=== PATIENT | male | born 1955 | race Caucasian/White ===

== ENCOUNTER 2017-01-09 07:57 | Inpatient (IN) | payer OTHER ==
[2017-01-09] VITALS (7 sets, daily range): BP systolic 104–143; BP diastolic 69–86
[~2017-01-09] VITALS: Ht 178 cm; Wt 82.0 kg
[~2017-01-09 07:57] MED LIST: APAP/OXYCODONE1 TA2 PO; ATORVASTATIN CA80 M1 PO; LISINOPRIL AND1 TAB PO; LOW DOSE ASPIRI81 MG PO; METOPROLOL TART50 M1 PO
[2017-01-09 08:43] LABS: BASO % 0.4 % (0.0-1.0); EOS # 0.1 10*3/uL (0.0-0.4); EOS % 0.8 % (1.0-4.0); HEMATOCRIT 44.4 % (42.0-52.0); HEMOGLOBIN 14.9 g/dl (14.0-18.0); LYMPH # 2.1 10*3/uL (1.3-4.4); LYMPH % 19.3 % (27.0-41.0); MEAN CELL VOLUME 92.1 fl (80.0-94.0); MEAN CORPUSCULAR HGB 30.9 pg (27.0-31.0); MEAN CORPUSCULAR HGB CONC 33.6 g/dl (33.0-37.0); MEAN PLATELET VOLUME 9.6 fl (9.6-12.3); MONO # 0.7 10*3/uL (0.1-1.0); MONO % 6.9 % (3.0-9.0); NEUT # 7.7 10*3/uL (2.3-7.9); NEUT % 72.3 % (47.0-73.0); PLATELET COUNT AUTOMATED 269 10*3/uL (130-400); RED BLOOD COUNT 4.82 10*6/uL (4.50-5.90); RED CELL DISTRI WIDTH 14.3 % (0-14.5); WHITE BLOOD COUNT 10.7 10*3/uL (4.8-10.8)
[2017-01-09 09:03] LABS: ALBUMIN 3.6 gm/dl (3.1-4.5); ALKALINE PHOSPHATASE 108 U/L (45-117); BUN 16 mg/dl (7-24); CHLORIDE 106 mmol/L (98-107); CREATININE 0.89 mg/dL (0.70-1.30); POTASSIUM 3.9 mmol/L (3.5-5.1); SGOT/AST 15 IU/L (3-35); SGPT/ALT 24 U/L (12-78); SODIUM 140 mmol/L (136-145); TOTAL PROTEIN 7.7 gm/dL (6.4-8.2)
[2017-01-09 09:08] LABS: ETHYL ALCOHOL < 3.0 mg/dl (<3)
[2017-01-09 09:11] LABS: THYROID STIM HORMONE (HS) 0.738 uIU/ml (0.358-4.75)
[2017-01-09 11:52] LABS: BILIRUBIN NEGATIVE (NEGATIVE); BLOOD NEGATIVE (NEGATIVE); CLARITY CLEAR (CLEAR); COLOR YELLOW (YELLOW); GLUCOSE NEGATIVE (NEGATIVE); KETONE NEGATIVE (NEGATIVE); LEUKO ESTERASE NEGATIVE (NEGATIVE); NITRITE NEGATIVE (NEGATIVE); SPECIFIC GRAVITY 1.015 (1.005-1.030)
[2017-01-09 11:58] LABS: RBC 0-2 rbc/hpf (0-2); WBC 0-2 wbc/hpf (0-5)
[2017-01-09 12:01] LABS: URINE AMPHETAMINES < 1000 (1000ng/ml); URINE BARBITURATES < 200 (200ng/ml); URINE BENZODIAZEPINES < 200 (200ng/ml); URINE CANNABINOIDS (THC) < 50 (50ng/ml); URINE COCAINE < 300 (300ng/ml); URINE METHADONE < 300 (300ng/ml); URINE OPIATES > 300 (300ng/ml); URINE PHENCYCLIDINE < 25 (25ng/ml)
[2017-01-10] VITALS: BP 114/68
[2017-01-10 04:00] VITALS: BP 91/61
[2017-01-10 08:00] VITALS: BP 110/74
[2017-01-10 12:00] VITALS: BP 112/82
[2017-01-10 16:00] VITALS: BP 95/61
[2017-01-10 20:00] VITALS: BP 109/56
[2017-01-11] VITALS: BP 111/65
[2017-01-11 08:00] VITALS: BP 108/74
[2017-01-11 12:00] VITALS: BP 124/87
[2017-01-11 16:00] VITALS: BP 108/64
[2017-01-11 20:00] VITALS: BP 130/66
[2017-01-12] VITALS: BP 122/62
[2017-01-12 06:20] LABS: BASO # 0.1 10*3/uL (0.0-0.1); BASO % 0.6 % (0.0-1.0); EOS # 0.3 10*3/uL (0.0-0.4); EOS % 3.3 % (1.0-4.0); HEMOGLOBIN 13.5 g/dl (14.0-18.0); LYMPH # 2.7 10*3/uL (1.3-4.4); LYMPH % 28.4 % (27.0-41.0); MEAN CELL VOLUME 94.9 fl (80.0-94.0); MEAN CORPUSCULAR HGB 31.3 pg (27.0-31.0); MEAN CORPUSCULAR HGB CONC 32.9 g/dl (33.0-37.0); MEAN PLATELET VOLUME 10.2 fl (9.6-12.3); MONO # 1.2 10*3/uL (0.1-1.0); MONO % 12.1 % (3.0-9.0); NEUT # 5.3 10*3/uL (2.3-7.9); NEUT % 55.3 % (47.0-73.0); PLATELET COUNT AUTOMATED 236 10*3/uL (130-400); RED BLOOD COUNT 4.32 10*6/uL (4.50-5.90); RED CELL DISTRI WIDTH 14.1 % (0-14.5); WHITE BLOOD COUNT 9.6 10*3/uL (4.8-10.8)
[2017-01-12 06:37] LABS: CREATININE 0.97 mg/dL (0.70-1.30)
[2017-01-12 08:00] VITALS: BP 128/58
[2017-01-12] MEDS ORDERED: ATARAX,VISTARIL50 MG PO (09:39)
[2017-01-12] MEDS ORDERED: ZOFRAN4 MG PO (09:39)
== END 2017-01-12 11:05 | disposition home or self-care (01) | DRG 897 ==
LOC: ED 07:57 → EDHOLD 08:35 → 5E 08:35
PROVIDERS: Emergency Medicine; Internal Medicine; ADMIT Internal Medicine
DX: F11.23 Opioid dependence with withdrawal (principal); E44.1 Mild protein-calorie malnutrition; I10 Essential (primary) hypertension; M79.1 Myalgia; I25.10 Atherosclerotic heart disease of native coronary artery without angina pectoris; Z72.0 Tobacco use; Z71.6 Tobacco abuse counseling; Z68.25 Body mass index [BMI] 25.0-25.9, adult; Z79.899 Other long term (current) drug therapy; Z95.818 Presence of other cardiac implants and grafts; I25.2 Old myocardial infarction; Z84.89 Family history of other specified conditions; Z79.82 Long term (current) use of aspirin

== ENCOUNTER 2017-02-25 15:50 | Inpatient (IN) | payer OTHER ==
[~2017-02-25] VITALS: Ht 170.1 cm; Wt 80.7 kg
--- NOTE | ~2017-02-25 | DS ---
[place], [place] DISCHARGE SUMMARY NAME: DARA CASTILLO JR UNIT #: [id number] ROOM: 311 DOCTOR: SERGO BOND MD BIRTHDATE: [birth year] DOS: 03/04/2017 CHIEF COMPLAINT: "I just want to end it all. I can't stand the pain." HISTORY OF PRESENT ILLNESS: This is a 61-year-old white male who was sent to the emergency room by his psychiatrist, Dr. Alvarez, due to increased depression with suicidal and homicidal ideation. The patient reports that he has been dealing with depression and chronic pain forever and feels that the only way out is to take his life. He has not been sleeping well. He has not been eating well. He has been thinking of nothing but ending it all. He is admitted now to rule out organic factors and to stabilize on medication. PAST MEDICAL HISTORY: Remarkable for chronic pain and a lengthy history of depression as well as coronary artery disease, hypertension, myalgia and syncope. SUMMARY OF HOSPITAL COURSE: The patient was admitted to the unit where he was continued on trazodone 50 mg at bedtime. His Klonopin was discontinued in lieu of a nonaddicting alternative Vistaril 25 mg twice daily. He was also started on Cymbalta 30 mg in the morning to help with depression, anxiety and the pain. He tolerated these new medicines well and the trazodone was eventually increased to 100 mg at bedtime to aid sleep and augment the effectiveness of the Cymbalta, which likewise was increased from 30 to 60 mg in the morning with excellent results. The patient found that both medications impacted positively on his mood helping him feel happier and less depressed. They also impacted on his pain and he felt great relief throughout the day. He voiced positive plans for the future and felt that he could return home and have outpatient followup with his psychiatrist. MENTAL STATUS AT DISCHARGE: The patient is alert and oriented to person, place, and time. Mood is strongly trending towards euthymia and affect is much more appropriate. There are no symptoms of ovi or hypomania. There are no auditory or visual hallucinations. No delusions, no paranoia. Short, intermediate, and long-term memory are intact. FINAL DIAGNOSES: Major depression, recurrent, severe, and dysthymic disorder. PLAN: All of his prescriptions have been E-scribed except for his Cymbalta, which was written and signed. He will have followup with his outpatient provider, which is Dr. Alvarez. [place], [place] DISCHARGE SUMMARY NAME: DARA CASTILLO JR UNIT #: [id number] ROOM: [facility] DOCTOR: SERGO BOND MD BIRTHDATE: [birth year] SERGO BOND MD CM:DISCHARG [id number] SERGO BOND MD 03/04/17 1036 interface
--- NOTE | ~2017-02-25 | PR ---
[place], [place] PROGRESS NOTE NAME: [facility]ILL[facility] JR [id number] UNIT #: [id number] ROOM: 317 DOCTOR: Daniel GUEVARA,NAIMA BIRTHDATE: [birth year] DOS: 02/27/2017 PSYCHIATRIC PROGRESS NOTE SUBJECTIVE: Patient seen and spoke with the staff. Per staff, patient is doing better, sleeping well. No behavior problems or issues and compliant with his medication. Patient was pleasant and cooperative. He reports feeling better, still feels sad and down at times, complains about pain and asking that if he can get the patch. He reports good sleep and appetite. Did not express any other concern. MENTAL STATUS EXAMINATION: Patient was pleasant, cooperative. Described his mood as "okay." Affect, mood congruent. Thought process goal directed. No flight of ideas, loosening of association. He denied auditory or visual hallucination. No delusion or paranoia noted. He denied suicidal ideation, intent or plan. He also denied any homicidal ideation, intent or plan. Insight and judgment fair. ASSESSMENT: Major depressive disorder, recurrent without psychotic features, still depressed. PLAN: 1. Continue current medication and care. May need to give some time to get the optimal effect of the medication. 2. Continue redirection. 3. Palmer milieu. NAIMA GUEVARA MD CM:PNGALE [phone] Daniel GUEVARA 02/27/17 2341 interface
--- NOTE | ~2017-02-25 | EKG ---
[place], [place] ELECTROCARDIOGRAM REPORT NAME: DARA CASTILLO JR UNIT #: [id number] ROOM: 317 DOCTOR: KARIS SRIVASTAVA MD BIRTHDATE: [birth year] DOS: 02/25/2017 TIME: 1639 hours. Normal sinus rhythm at 94 beats per minute. Low voltage T waves in lateral chest leads. An abnormal ECG. No previous tracing is available for comparison. KARIS SRIVASTAVA MD CM:EKGRPT:ELECTROCARDIOGRAM REPORT [id number] KARIS SRIVASTAVA MD
--- NOTE | ~2017-02-25 | PR ---
[place], [place] PROGRESS NOTE [id number] #: [id number] ROOM: 317 DOCTOR: Daniel GUEVARA,NAIMA BIRTHDATE: [birth year] DOS: 02/28/2017 PSYCHIATRIC PROGRESS NOTE SUBJECTIVE: Patient seen and spoke with the staff. Per staff, patient is doing well. No behavioral problems or issues. Slept well, but he was seen talking to himself and responding to stimuli. Patient was pleasant and cooperative. He was in the day area. He reports doing well. When I asked him about auditory hallucination, he totally denied that. He said that the current medication is helping him and he is doing much better. There is no anxiety or panic attack. He said that he still has some pain issues and would like to talk with the primary care physician about that. MENTAL STATUS EXAMINATION: Patient was pleasant, cooperative. Described his mood as "okay." Affect, mood congruent. Thought process goal directed. No flight of ideas or loosening of association. He denied auditory or visual hallucination, but per nursing report, he seems to be responding to stimuli. No delusion or paranoia noted. He denied suicidal ideation, intent or plan. He also denied homicidal ideation, intent or plan. Insight and judgment fair. ASSESSMENT: 1. Major depressive disorder, recurrent, without psychotic features. 2. Opiate dependence. PLAN: 1. Continue current medication and care. 2. Continue redirection. 3. Palmer milieu. NAIMA GUEVARA MD CM:MAX [id number] Daniel GUEVARA 03/01/17 0301 interface
--- NOTE | ~2017-02-25 | WRIGHTHP ---
[place], [place] PATIENT HISTORY AND PHYSICAL EXAM [id number] UNIT #: [id number] ROOM: 317 DOCTOR: Daniel GUEVARA,ABISAICHIP BIRTHDATE: [birth year] DOS: 02/26/2017 REASON FOR HOSPITALIZATION: Increased depression, suicidal and homicidal ideation. HISTORY OF PRESENT ILLNESS: The patient seen and chart reviewed. A 61-year-old male who came to the ER referred actually by his psychiatrist, Dr. Alvarez, for increased depression and suicidal and homicidal ideation. The patient got cleared medically into the ER and then got admitted to the psychiatric unit for further care and stabilization. The patient was pleasant and cooperative during the interview. He reports being depressed, down, sad, helpless with lack of energy and motivation for the past several weeks. He mentioned that his pain physician, who has been prescribing him Percocet, suddenly stopped the Percocet and do not want to prescribe him anymore. He mentioned that he has been dealing with pain for the past 17 years, but now his pain physician, Dr. Villa, who wants to count how many medication he has been given and also wants to take him for even drug screen. The patient mentioned that made him mad and he cannot deal with the pain also. The patient mentioned that he was injured during work and he has been taking Percocet for the last 17 years. Besides the pain and also not able to get the Percocet, he was not able to identify any other specific stress for his depression. He mentioned that he was trying to get the medication from the street and also from some friends, but he cannot afford that because those medications on the street were expensive. He denied any symptoms of psychosis, ovi, or hypomania. PAST MEDICAL HISTORY: Significant for coronary artery disease, hypertension, myalgia, and syncope. PAST PSYCHIATRIC HISTORY: The patient denied any prior psychiatric hospitalization, 1 prior suicide attempt when he tried to cut his wrist. His dad committed suicide. He denied having any gun at home. SUBSTANCE ABUSE HISTORY: The patient had a long history of alcohol abuse. He said that he has been sober since 2009. Denied any other substances. SOCIAL HISTORY: He is born and raised in [place], 10th grade education. He was once, but . He does not have any kids, on SSDI, lives by himself. He has a brother and sister around, but he does not have a good relationship with them. He denied any history of physical or sexual abuse. MENTAL STATUS EXAMINATION: The patient was pleasant, cooperative, described his mood as "okay." Affect, mood congruent. Thought process goal directed. No flight of ideas, loosening of association. He denied auditory or visual hallucination. No delusion or paranoia noted. He still had fleeting suicidal ideation, but no intent or plan. Denied any homicidal ideation, intent or plan. Insight and judgment fair. ASSESSMENT: [place], [place] PATIENT HISTORY AND PHYSICAL EXAM NAME: DARA CASTILLO JR UNIT #: [id number] ROOM: [facility] DOCTOR: Daniel GUEVARA,NAIMA BIRTHDATE: [birth year] 1. Major depressive disorder, recurrent without psychotic features, still depressed with fleeting suicidal ideation. 2. Opiate addiction. PLAN: 1. I will start him on Cymbalta 30 mg in the morning with a plan to titrate that up. 2. I will continue with trazodone 50 mg at night for insomnia. 3. Vistaril 25 mg twice a day for anxiety. I will discontinue the Klonopin. 4. We will involve the medical team to treat his pain issues. 6. One to one therapy psychoeducation and coping skills. 7. Collateral information. 8. Palmer milieu. NAIMA GUEVARA MD CM:HISPHYS:PATIENT HISTORY AND PHYSICAL EXAMINATION [phone] Daniel GUEVARA 02/27/17 1453 interface
--- NOTE | ~2017-02-25 | PR ---
[place], [place] PROGRESS NOTE NAME: [facility]AA [id number] UNIT #: [id number] ROOM: 317 DOCTOR: Daniel GUEVARA,NAIMA BIRTHDATE: [birth year] DOS: 03/01/2017 SUBJECTIVE: The patient seen and spoke with the staff. Per staff, the patient is doing well. He is much more animated and more interactive. He is sleeping well. No behavior problems or issues. Easily redirectable. The patient was pleasant and cooperative. He reports doing well. He reports good sleep and appetite: Denied any problem with his medication. He did not talk about his pain also as much, but he mentioned that he would like to use the patch instead of taking pain medication by mouth. MENTAL STATUS EXAMINATION: The patient was pleasant and cooperative, described his mood as "okay." Affect, mood congruent. Thought process goal directed. No flight of ideas or loosening of association. He denied auditory or visual hallucination. No delusion or paranoia noted. He denied any suicidal ideation, intent or plan. He also denied any homicidal ideation, intent or plan. Insight and judgment fair. ASSESSMENT: 1. Major depressive disorder, recurrent without psychotic feature. 2. Polysubstance abuse. PLAN: 1. Continue current medication and care. 2. Continue redirection. 3. Palmer milieu. 4. Final medication management and discharge plan by the regular team. NAIMA GUEVARA MD CM:MAX [phone] Daniel GUEVARA 03/01/17 1003 interface
[~2017-02-25 15:50] MED LIST changes: +ATARAX,VISTARIL50 MG PO; +ZOFRAN4 MG PO
--- NOTE | 2017-02-25 16:10 | NUR ---
ALL BELONGINGS IN BAGS AND PLACED IN MED ROOM. PT CALM, COOPERATIVE. OFFERED PT DINNER TRAY, PT AGREEABLE.
[2017-02-25 16:17] VITALS: BP 129/94
[2017-02-25 16:50] LABS: BASO # 0.1 10*3/uL (0.0-0.1); BASO % 0.6 % (0.0-1.0); EOS # 0.1 10*3/uL (0.0-0.4); HEMOGLOBIN 15.2 g/dl (14.0-18.0); LYMPH # 2.9 10*3/uL (1.3-4.4); LYMPH % 26.5 % (27.0-41.0); MEAN CELL VOLUME 92.2 fl (80.0-94.0); MEAN CORPUSCULAR HGB 31.1 pg (27.0-31.0); MEAN CORPUSCULAR HGB CONC 33.8 g/dl (33.0-37.0); MEAN PLATELET VOLUME 9.6 fl (9.6-12.3); MONO # 0.8 10*3/uL (0.1-1.0); MONO % 7.3 % (3.0-9.0); NEUT % 64.3 % (47.0-73.0); PLATELET COUNT AUTOMATED 274 10*3/uL (130-400); RED BLOOD COUNT 4.88 10*6/uL (4.50-5.90); RED CELL DISTRI WIDTH 14.3 % (0-14.5); WHITE BLOOD COUNT 10.9 10*3/uL (4.8-10.8)
[2017-02-25 16:55] LABS: BILIRUBIN NEGATIVE (NEGATIVE); BLOOD NEGATIVE (NEGATIVE); CLARITY CLEAR (CLEAR); COLOR YELLOW (YELLOW); GLUCOSE NEGATIVE (NEGATIVE); KETONE NEGATIVE (NEGATIVE); LEUKO ESTERASE NEGATIVE (NEGATIVE); NITRITE NEGATIVE (NEGATIVE); PH 5.5 (5.0-9.0); SPECIFIC GRAVITY 1.025 (1.005-1.030); UROBILINOGEN 0.2 E.U./dl (0.2-1.0)
[2017-02-25 17:00] LABS: ACT PARTIAL THROMBO TIME 22.9 SECONDS (20.8-31.5)
[2017-02-25 17:03] LABS: BACTERIA TRACE; MUCOUS 1+; WBC 0-2 wbc/hpf (0-5)
[2017-02-25 17:04] LABS: EPITHELIAL CELLS 0-2; URINE AMPHETAMINES < 1000 (1000ng/ml); URINE BARBITURATES < 200 (200ng/ml); URINE BENZODIAZEPINES < 200 (200ng/ml); URINE CANNABINOIDS (THC) < 50 (50ng/ml); URINE COCAINE < 300 (300ng/ml); URINE METHADONE < 300 (300ng/ml); URINE OPIATES > 300 (300ng/ml); URINE PHENCYCLIDINE < 25 (25ng/ml)
[2017-02-25 17:05] LABS: ALKALINE PHOSPHATASE 115 U/L (45-117); BUN 9 mg/dl (7-24); CHLORIDE 105 mmol/L (98-107); LIPASE 198 U/L (73-393); POTASSIUM 3.7 mmol/L (3.5-5.1); SGOT/AST 16 IU/L (3-35); SGPT/ALT 26 U/L (12-78); SODIUM 140 mmol/L (136-145); TOTAL PROTEIN 7.8 gm/dL (6.4-8.2)
[2017-02-25 17:06] LABS: ACETAMINOPHEN (TYLENOL) < 2.0 ug/ml (10-30); ETHYL ALCOHOL < 3.0 mg/dl (<3); TROPONIN I < 0.015 ng/ml (<0.045)
--- NOTE | 2017-02-25 17:24 | NUR ---
PATIENT CURRENTLYCALM AND COOPERATIVEAT THIS TIME.
--- NOTE | 2017-02-25 18:37 | NUR ---
SPOKE WITH U FOR ADMISSION. PENDING AT THIS TIME/
--- NOTE | 2017-02-25 19:08 | NUR ---
PATIENT EATING AT THIS TIME WILL ASSESS AFTER HISAL
[2017-02-25 19:20] VITALS: BP 142/93
--- NOTE | 2017-02-25 19:30 | NUR ---
U ACCEPTED ADMISSIONS AWAITING ON ROOM AND NURSE
--- NOTE | 2017-02-25 20:27 | NUR ---
CALLED TO SEE WHEN [facility] WOULD BE DOWN FOR ADMISSION
--- NOTE | 2017-02-25 20:30 | NUR ---
CASTLILO DARA a 61 year old M admitted via wheel chair from the EMERGENCY ROOM as a voluntary admission. Arrived on unit at 2030PM. ALLERGIES: NONE. Vital signs are: 97.3-84-18 130/70. The client signed the following forms with stated understanding: Authorization For The Release of Medical Information, Clothing List, Consent to Voluntary Admission and Hospitalization, Consent and Release Forms/Receipt of Rights, Acknowledgement of Advance Directive Information, Behavioral Health Consent Form, and Informed Consent of Medications. Admitted under the services of Dr. PAOLA M.D[facility]. A search was conducted and hazardous articles were removed. Client was oriented to the unit. CLIENT STATES THAT INCREASED DEPRESSION AND SUICIDAL THOUGHTS AFTER DR TAYLOR STOPPED FILLING HIS PERCOCET TABLETS 10/325MG TABLETS. HE HAS BEEN TAKING THEM 6 TIMES A DAY. STATES HIS PHONE WAS OFF WHEN DOCTOR CALLED HIM IN FOR A PILL COUNT AND HE DIDN'T GO. HAD BEEN BUYING PERCOCETS OFF THE STREET TILL HE RAN INTO FINACIAL DIFFICULTY THEN FRIENDS STARTED HELPING HIM. HE WAS ADMITTED IN JAN OF THIS YEAR FOR DETOX BUT ADMITS TO BEING DISCHARGED AND IMMEDIATLY STARTED USING AGAIN. STATES DR GONZALEZ'S NURSE PRACTITIONER GAVE HIM A SCRIPT FOR KLONOPIN IN JAN BUT THEY WERE STOLEN FROM HIM. WILL CALL [facility] IN THE MORNING TO VERIFY MEDICATIONS CLIENT STATES HE WAS GIVEN 2 SCRIPTS TODAY FOR A PILL 30MG TABLET FOR 2 WEEKS AND ONE FOR 60MG TABLETS FOR 30DAYS. HE CAN'T REMEMBER THE NAME AND THE MEDICATION REC SHOWS HIS LAS RX FILL WAS BEGINING OF THE MONTH. SABAS CHACON
--- NOTE | 2017-02-25 20:56 | NUR ---
TROY HERE TO TAKE PATIENT
[2017-02-25 21:30] VITALS: BP 130/70
--- NOTE | 2017-02-25 21:40 | NUR ---
DR LERNER HERE TO SEE CLIENT
[2017-02-25] MEDS ORDERED: TRAZODONE50 MG PO (21:46)
--- NOTE | 2017-02-25 23:52 | NUR ---
ATE FULL SNACK. MEDICATION COMPLIANT. READY FOR BED.
[2017-02-26] MEDS ORDERED: KLONOPIN0.5 MG PO (00:14)
--- NOTE | 2017-02-26 04:21 | NUR ---
HAS BEEN RESTING WELL SINCE NIGHTTIME MEDICATIONS AND SNACK PROVIDED. AWAITING DR LERNER TO ORDER HOME MEDICATIONS.
--- NOTE | 2017-02-26 04:23 | NUR ---
24 HR chart check completed.
--- NOTE | 2017-02-26 04:57 | NUR ---
ROSA SARABIA RN NOTIFIED DR LERNER THAT CLIENTS HOME MEDICATIONS HAVE NOT BEEN ORDERED YET
--- NOTE | 2017-02-26 06:57 | NUR ---
SLEPT WELL PAST MIDNIGHT
[2017-02-26 07:10] LABS: BASO # 0.1 10*3/uL (0.0-0.1); BASO % 0.7 % (0.0-1.0); EOS # 0.3 10*3/uL (0.0-0.4); EOS % 2.5 % (1.0-4.0); HEMATOCRIT 43.9 % (42.0-52.0); HEMOGLOBIN 14.8 g/dl (14.0-18.0); LYMPH # 2.7 10*3/uL (1.3-4.4); LYMPH % 23.8 % (27.0-41.0); MEAN CELL VOLUME 90.3 fl (80.0-94.0); MEAN CORPUSCULAR HGB 30.5 pg (27.0-31.0); MEAN CORPUSCULAR HGB CONC 33.7 g/dl (33.0-37.0); MEAN PLATELET VOLUME 9.9 fl (9.6-12.3); MONO # 0.9 10*3/uL (0.1-1.0); MONO % 7.5 % (3.0-9.0); NEUT # 7.5 10*3/uL (2.3-7.9); NEUT % 65.2 % (47.0-73.0); PLATELET COUNT AUTOMATED 263 10*3/uL (130-400); RED BLOOD COUNT 4.86 10*6/uL (4.50-5.90); RED CELL DISTRI WIDTH 14.2 % (0-14.5); WHITE BLOOD COUNT 11.5 10*3/uL (4.8-10.8)
[2017-02-26 07:35] LABS: ALBUMIN 3.4 gm/dl (3.1-4.5); ALKALINE PHOSPHATASE 114 U/L (45-117); BUN 11 mg/dl (7-24); CHLORIDE 106 mmol/L (98-107); CHOLESTEROL 187 mg/dL (<200); HDL CHOLESTEROL 36 mg/dl (40-60); LDL CHOLESTEROL 99 mg/dL (9-159); SGOT/AST 16 IU/L (3-35); SGPT/ALT 29 U/L (12-78); SODIUM 140 mmol/L (136-145); TOTAL PROTEIN 7.4 gm/dL (6.4-8.2); TRIGLYCERIDES 258 mg/dl (<150); VLDL CHOLESTEROL 52 mg/dL (6-40)
[2017-02-26 08:11] LABS: VITAMIN D, 25-HYDROXY 18.1 ng/mL (30-100)
[2017-02-26 08:14] VITALS: BP 121/72
--- NOTE | 2017-02-26 09:28 | NUR ---
TREATMENT TEAM WAS HELD WITH THE FOLLOWING : DR. NIELSON (PHONE), RNs, AT, SW. PT IS NEW.
--- NOTE | 2017-02-26 11:38 | NUR ---
Social Bingo Patient attended group and displays appropriate participation. Patient able to answer bingo questions appropriately. Patient oriented x 4 without assist from AC. Patient reports feeling better since getting here and happy to get help.
--- NOTE | 2017-02-26 12:51 | NUR ---
PER ARUN AT [facility], IP [place] 3 DAYS. NEXT REVIEW 02/27/17.
--- NOTE | 2017-02-26 13:23 | NUR ---
ALLA SPOKE WITH CASSY Urbina CM . APPROVED FOR 3 DAYS. LCD 02/27/17.
[2017-02-26 20:00] VITALS: BP 109/67
--- NOTE | 2017-02-27 02:02 | NUR ---
24 HR chart check completed.
--- NOTE | 2017-02-27 06:22 | NUR ---
PT DENIES ANY SUICIAL IDEATIONS THIS SHIFT, 1-1 PROVIDED AND PT AGREED TO CONTRACT FOR SAFETY IF SI RETURNS. COPING SKILLS REVIEWED WITH PT, MEDICATION EDUCATION PROVIDED AND VERBALIZED UNDERSTANDING. SOCALIZING WELL WITH PEERS, CHEERFULL DEMEANOR, LAUGHING AT COMEDY FILM BEFORE HS. CONSUMED HS SNACK, MED COMPLIANT WITH OUT DIFFICULTY. SLEPT 8 HOURS UNINTURRUPTED. Q 15 MIN CHECKS MAINTAINED FOR SAFETY.
--- NOTE | 2017-02-27 07:51 | NUR ---
02/26/17 Afternoon Self Esteem Story/Coping skills Jeopardy Patient was in attendence for group as well as participated. Patient maintained safe behaviors and expressed no suicidal ideations nor self destructive thoughts during group
[2017-02-27 08:01] VITALS: BP 109/62
[2017-02-27 09:06] VITALS: BP 114/70
--- NOTE | 2017-02-27 13:27 | NUR ---
DARA IS ALERT AND ORIENTED, ABLE TO VOICE NEEDS AND WANTS TO STAFF. MOOD REMAINS MILDLY DEPRESSED WITH APPROPRITE AFFECT. CALM AND COOPERATIVE WITH STAFF. POSITIVE PEERS INTERACTIONS NOTED IN THE DAY ROOM. MT REPORT PATIENT HAS BEEN OBSERVED CARRYING ON CONVERSATIONS WITH HIMSELF, NOT OBSERVED BY RN BUT WILL CONTINUE TO MONITOR THIS. MEDICATION COMPLIANT WITHOUT DIFFICULTY. MEDICATION EDUCATION COMPLETED THIS MORNING WITH GOOD EFFECT, PATIENT VERBALIZES UNDERSTANDING. DENIES ANY SIDE EFFECT OR ADVERSE REACTION FROM MEDICATIONS. STATES HE IS FEELING MUCH BETTER NOW AND HAS NOT EXPERIENCED ANY SUICIDAL IDEATIONS THIS SHIFT AND THAT GROUP THERAPY HAS BEEN POSITIVELY EFFECTIVE FOR HIM. POSITIVE FEEDBACK GIVEN AT THIS TIME, WELL , VERBALLY CONTRACTED FOR SAFETY. APPETITE GOOD FOR MEALS AND TAKING FLUDIS WELL. WILL CONTINUE TO MONITOR Q15 MIN SAFETY CHECKS PER OBSERVATION ORDERS. MED [facility] NEEDED, ENCOURAGE TO ATTEND AND PARTICIPATE IN GROUP THERAPIES, VERBALLY CONTRACT FOR SAFETY. SEE [facility] FLOWSHEET FOR SPECIFIC MONITORING.
--- NOTE | 2017-02-27 15:27 | NUR ---
Reminiscing Patient was in attendence as well as participated. Patient maintained safe behaviors and had no suicidal ideations throughout group
--- NOTE | 2017-02-27 16:01 | NUR ---
Identifying my strengths Patient did attend group this afternon as well as participated. Patient maintained safe behaviors and voiced no suicidal thoughts throughout group
[2017-02-27 17:39] VITALS: BP 106/60
--- NOTE | 2017-02-27 18:17 | NUR ---
MADE AWARE LOPRESSOR WAS HELD D/T MANUAL BP 106/60. NNO.
[2017-02-27 19:24] VITALS: BP 136/74
--- NOTE | 2017-02-28 05:18 | NUR ---
24 HR chart check completed.
--- NOTE | 2017-02-28 05:21 | NUR ---
REC'D VOICE MAIL FROM JULIO AT [facility]. IP STAY [place] 2 MORE DAYS. LAST COVERED DAY IS Sat03/01/17 WITH REVIEW DUE SATURDAY WELL.
--- NOTE | 2017-02-28 05:50 | NUR ---
PT PLESANT AND COOPERATIVE FOR ALL APECTS OF CARE, DENIES SI AT THIS TIME AGREEED TO CONTRACT FOR SAFETY. INTERACTING WELL WITH PEERS. 1-1 PROVIDED PT DISCUSSED COPING SKILLS, MED EDUCATION PROVIDED VERBALIZED UNDERSTANDING. Q 15 MIN CHECKS MAINTAINED FOR SAFETY. PT SLEPT THROUGHOUT THE NIGHT WITH OUT INTURRUPTION >8 HOURS.
[2017-02-28 08:00] VITALS: BP 128/7
--- NOTE | 2017-02-28 09:17 | NUR ---
TREATMETN TEAM WAS HELD WITH THE FOLLOWING: DR. GUEVARA (PHONE), RNs, AT, SW. PT IS STIL DELSUIONAL AND HALLUXNIATING. STAFF HAVE WITNESSED PT RESPONDING TO OUTSIDE STIMLUI.
--- NOTE | 2017-02-28 10:26 | NUR ---
PATIENT IS ALERT AND ORIENTED WITH APPROPRIATE AFFECT THIS AM. MOOD IS STABLE AT THIS TIME. DENIES ANY SI/HI OR PLANS. APPEARS TO BE BRIGHTER TODAY THAN YESTERDAY. STATES HE SLEPT WELL LAST NIGHT WITH ONLY 1 BRIEF INTERRUPTION. NO S/S OF ANXIETY NOTED. DENIES ANY DELUSIONS OR HALLUCINATIONS AND NONE ARE NOTED THUS FAR THIS SHIFT. WILL CONTINUE TO MONITOR DUE TO QUESTIONABLE A/V HALLUCINATIONS. APPETITE GOOD FOR BREAKFAST, TAKING FLUIDS WELL. HAS BEEN ATTENDING AND PARTICIPATING IN GROUP THERAPY. MEDICATION COMPLIANT WITHOUT DIFFICULTY. MEDICATION EDUCATION COMPLETED ON "CYMBAL" THIS MORNING WITH GOOD EFFECT. PATIENT DENIES ANY SIDE EFFECT OR ADVERSE REACTIONS OF MEDICATIONS AND NONE ARE NOTED. INCREASED PEER INTERACTIONS NOTED THIS SHIFT. WILL CONTINUE Q15 MIN OBSERVATION CHECKS PER ORDERS.
--- NOTE | 2017-02-28 13:34 | NUR ---
Jenna/Jorje Patient was in attendence for group as well as participated. Patient maintained safe behaviors and reported no suicidal thoughts while in group
--- NOTE | 2017-02-28 15:45 | NUR ---
FEARS Patient was in attendence for group as well as participated. Near the end of group patient had his face turned away from others and was heard by myself "Talking to someone." AT asked patient if he was ok and patient replied yes he was. Patient did not report juno suicidal ideations during group
[2017-02-28 17:42] VITALS: BP 106/66
--- NOTE | 2017-02-28 17:44 | NUR ---
NOTIFIED LOPRESSOR WAS HELD D/T 106/.
[2017-02-28 20:37] VITALS: BP 109/67
--- NOTE | 2017-03-01 00:39 | NUR ---
PT ALERT AND ORIENTED X4. . DENIES HI/SI, HALLUCINATIONS AND DELUSIONS. MEDICATION COMPLIANT WITHOUT DIFFICULTY. PT INTERACTIVE WITH PEERS AND STAFF. Q15 MINUTE SAFETY CHECKS MAINTAINED. NO S/S OF DISTRESS. NO C/O PAIN.
--- NOTE | 2017-03-01 05:40 | NUR ---
PT SLEPT APPROXIMATELY 8 HOURS THIS SHIFT. NO S/S OF DISTRESS. NO C/O PAIN.
--- NOTE | 2017-03-01 05:41 | NUR ---
24 HR chart check completed.
[2017-03-01 07:48] VITALS: BP 113/68
--- NOTE | 2017-03-01 09:45 | NUR ---
TREATMENT TEAM WAS HELD WITHTHE FOLLOWING: DR. GUEVARA (PHONE), AT, SW, RNs, DIRECTOR.
--- NOTE | 2017-03-01 11:15 | NUR ---
Rememberin Our Tastes Patient was in attendence for group this morning as well as participated. Patient maintained safe behaviors and reported no suicidal ideations during group.
--- NOTE | 2017-03-01 11:45 | NUR ---
VM FROM CASSY INQUIRING ABOUT PT CONDITION DUE TO NEEDING TO SUBMIT REVIEW. SW RETURNED CALL AND REPORTED THAT PT IS STILL HALLUCINATIONS AND REPPSONDING TO INTERNAL STIMULI.
--- NOTE | 2017-03-01 15:17 | NUR ---
PT ALERT TO PERSON,PLACE, TIME AND SITUATION. PT MED COMPLIANT WITHOUT DIFFICULTY, MED EDUCATION PROVIDED. PT MOOD IS STABLE. PT CALM INTERACTING WITH STAFF AND PEERS. PT GOAL DIRECTED TOWARDS DISCHARGE. NO HALLUCINAITONS OR DELUSIONS NOTED. PT DENIES ANY SUICIDAL/HOMICIDAL THOUGHTS AT THIS TIME. PT AMBULATORY THROUGHOUT UNIT, GAIT STEADY. PT CONTINENT OF BOWEL AND BLADDER. T TREATMENT PLAN TARGETS #1- SUICIDAL IDEATIONS R/T PAIN AEB LACK OF ACCESS TO PERCOCET, #2- SUBSTANCE ABUSE R/T PAIN FROM WORK INJURY AEB PT REPORT. PT REPORTED NO SUICIDAL THOUGHTS THIS SHIFT, PT CONTRACTED FOR SAFETY WITH STAFF IF SUCH THOUGHTS ARISE. PT HAD NO COMPLAINTS OF PAIN THIS SHIFT. PLAN IS TO ENCOURAGE PT TO VOICE ANY SUICIDAL THOGUHTS, MONITOR PT BEHAVIORS ON Q15 MIN SAFETY CHECKS, ENCOURAGE PT TO UTILIZE POSITIVE COPING SKILLS AND NON-PHARMACOLOGIC PAIN RELIEF METHODS.
--- NOTE | 2017-03-01 15:20 | NUR ---
Games Patient was in attendence for group as well as participated. Patient maintained safe behaviors and voiced no suicidal ideations throughout group
[2017-03-01 19:52] VITALS: BP 105/64
--- NOTE | 2017-03-02 00:39 | NUR ---
24HR CHART CHECKS COMPLETE
--- NOTE | 2017-03-02 03:01 | NUR ---
PT ALERT AND ORIENTED X4. PT PLEASANT, SOCIALIZED WELL WITH PEERS. BRIGHT AFFECT NOTED UPON APPROACH. NO COMPLIANTS OF PAIN WHATSOEVER. PT DENIED ANY SI/HI, DELUSIONAL THOUGHT PROCESSES, OR HALLUCINATIONS. NURSE PROVIDED EDUCATION REGARDING THE HARMFUL EFFECTS OF SUBSTANCE ABUSE. PT RECEPTIVE TO EDUCATION. MED EDUCATION ALSO CONDUCTED. ENCOURAGED PT TO VERBALIZE ANY FEELINGS REAGRDING THIS INPATIENT STAY, WELL , ANY GOALS HE MAY HAVE FOR TREATMENT. PT STATES "I JUST WANT TO FEEL BETTER." ENCOURAGED PATIENT TO PRACTICE COPING MECHANISMS WHEN ADVERSITY STRIKES. CONTINUE TO MONITOR FOR CHANGES IN BEHAVIOR. REFER TO [facility] FOR ADDITIONAL INFO.
[2017-03-02 08:20] VITALS: BP 113/71
--- NOTE | 2017-03-02 12:23 | NUR ---
PT ALERT TO PERSON,PLACE, TIME AND SITUATION. PT MED COMPLIANT WITHOUT DIFFICULTY, MED EDUCATION PROVIDED. PT MOOD IS STABLE. PT PLEASANT AND COOPERATIVE, INTERACTING WITH STAFF AND PEERS. NO HALLUCINATIONS OR DELUSIONS NOTED. PT DENIES ANY HOMICIDAL/SUICIDAL THOUGHTS, PT CONTRACTED FOR SAFETY WITH STAFF, IF SUCH THOUGHTS ARISE. PT AMBULATORY THROUOUT UNIT, GAIT STEADY. PT CONTUNENT OF BOWEL AND BLADDER. PT TREATMENT PLAN TARGETS #1- SUICIDAL IDEATIONS R/T PAIN ARB LACK OF ACCESS TO PAIN MEDS. PT HAS NOT C/O PAIN AND NO S/S OF PAIN OBSERVED. PT HAS MADE NO REQUESTS FOR PAIN MEDS AT THIS TIME. PLAN IS TO ENCOURAGE PT TO VOICE ANY SUICIDAL THOUGHTS, CONTRACT FOR SAFTEY WITH STAFF, IS SUCH THOUGHTS DO ARISE. MONITOR PT BEHAVIORS ON Q15 MIN SAFETY CHECKS, ENCOURAGE PT TO VOICE ANY COMPLAINTS OF PAIN, ENCOURAGE PT TO UTILIZE POSITIVE COPING SKILLS, AND NON-PHARMACOLOGIC PAIN RELIEVE METHODS.
--- NOTE | 2017-03-02 15:19 | NUR ---
ON UNIT TO ASSESS PT.
--- NOTE | 2017-03-02 19:28 | NUR ---
24HR CHART CHECKS COMPLETE
[2017-03-02 20:35] VITALS: BP 102/67
--- NOTE | 2017-03-02 21:29 | NUR ---
PT ALERT AND ORIENTED X4. BRIGHT AFFECT NOTED. SOCIALZES WELL WITH ALL PEERS. ACTIVE AND PARTICIPATING IN TREATMENT. VOICED NO COMPLAINTS OF CHRONIC PAIN OR THE NECESSITY FOR PAIN MEDICATION. PT DENIES SI/HI, DELUSIONAL THOUGHT PROCESSES, OR HALLUCINATIONS. PT REPORTS HAVING A "GREAT DAY." HE ENJOYED WATCHING THE FOOTBALL GAME WITH HIS PEERS. NURSE DISCUSSED HIS PROGRESS AND GOALS FOR THE DURATION OF HIS INPATIENT STAY. PT REPORTS WILLINGNESS TO DO WHATS NECESSARY TO GET HIMSELF ON THE RIGHT TRACK. CONTINUE TO MONITOR FOR CHANGES IN BEHAVIOR. REFER TO FLOWSHEET FOR ADDITIONAL INFO
--- NOTE | 2017-03-03 06:22 | NUR ---
PT SLEPT >8HRS WITH NO INTERRUPTIONS
[2017-03-03 08:19] VITALS: BP 108/72
--- NOTE | 2017-03-03 08:27 | NUR ---
PT BLOOD PRESSURE THIS AM 108/72, DR. GRAYSON NOTIFIFED. REVIEWED MEDS AND ADVISED DR THAT PT IS ORDERED ESIDREX, LISINOPRIL AND LOPRESSOR. PER HOLD ALL 3 MEDS THIS AM. ALSO ADVISED THAT PER PT HIS LOPRESSOR HAS ALWAYS BEEN ORDERED FOR 2X/DAY BUT HE ONLY TAKES IT 1X/DAY. PER , UPDATE PT HOME MED REC PUTTING A NOTE IN RE:THIS MATTER BUT LEAVE CURRENT MEDS THE SAME. NO FURTHER ORDERSD AT THIS TIME.
--- NOTE | 2017-03-03 10:56 | NUR ---
PT ALERT TO PERSON,PLACE, TIME AND SITUATION. PT MED COMPLIANT WITHOUT DIFFICULT, MED EDUCATION PROVIDED. PT TAB IS EUTHYMIC. PT CALM, INTERACTING WITH STAFF AND PEERS. PT GOAL DIRECTED TOWARDS DISCHARGE, EDUCATION PROVIDED RE:TAKING MEDS PRESCRIBED AND KEEPING FOLLOW UP DISCHARGE APPOINTMENTS. NO HALLUCINATIONS OR DELUSIONS NOTED. PT DENIES ANY HOMICIDAL/SUICIDAL THOUGHTS. PT AMBULATORY THROUGHOUT UNIT, GAIT STEADY. PT CONTINENT OF BOWEL AND BLADDER. PT CONSUMED 100% OF BREAKFAST. PT TREATMENT PLAN TARGETS #1-SUICIDAL IDEATIONS R/T TO PAIN AEB LACK OF ACCESS TO PAIN MEDS. PT HAS HAD NO C/O PAIN, AND HAS NOT MADE ANY REQUESTS FOR PAIN MEDS. PLAN IS TO ENCOURAGE PT TO VOICE ANY HOMICIDAL/SUICIDAL THOUGHTS, ENCOURAGE PT TO UTILIZE POSITIVE COPING SKILLS AND NON-PHARMACOLOGIC PAIN RELIEF METHODS, MONITOR PT NEAHVIORS ON Q15 MIN SAFTEY CHECKS.
[2017-03-03 19:41] VITALS: BP 106/67
--- NOTE | 2017-03-04 00:32 | NUR ---
24 HR chart check completed.
--- NOTE | 2017-03-04 05:42 | NUR ---
VOICE MAIL FROM JULIANN AT [facility]- LAST COVERED DAY 03-04-17 WITH NEXT REVIEW DUE 03-04-17
--- NOTE | 2017-03-04 06:08 | NUR ---
PT HAS BEEN OBSERVED ON Q 15 MIN CHECKS & HAS SLEPT QUIETLY THROUGHOUT THE SHIFT PAST 2300.
[2017-03-04 07:51] VITALS: BP 117/83
--- NOTE | 2017-03-04 08:00 | NUR ---
VM FROM CASSY HOLGUIN REPORTING THAT PT WAS COVERED JOHN 03/04.
--- NOTE | 2017-03-04 09:00 | NUR ---
TREATMENT TEAM WAS HELD WITH THE FOLLOWING: DR. BOND, RNs, AT, SW. PT TO BE DISCHARGED TODAY.
[2017-03-04] MEDS ORDERED: TRAZADONE HYDR100 MG PO (09:49)
[2017-03-04] MEDS ORDERED: HYDROXYZINE PAM25 M1 PO (09:49)
[2017-03-04] MEDS ORDERED: DULOXETINE HCL60 MG PO (09:49)
--- NOTE | 2017-03-04 12:15 | NUR ---
DR GRAYSON NOTIFIED OF PT BEING DISCHARGED
--- NOTE | 2017-03-04 12:49 | NUR ---
Exercise/Letter To Me Patient was in attendence as well as participated in group this morning. Patient maintained safe behaviores and voiced no suicidal thoughts throughout group. Patient was accused "cutting Off" another patient. Patient then defended himself. This staff member stepped in and defused the situation,with this patient apologizing. Nurse informed of occurence.
--- NOTE | 2017-03-04 14:30 | NUR ---
ALLA SCHEDULED FOLLOWUP APPOINTMENTS WITH DR. BERNAL 03/15 AT 1120A; [facility] 03/06 AT 1115AM. LEFT FOR [facility]. [facility] DOES NOT DO TRANSPORATION. PERMISSION FROM DIRECTOR TO DO TAXI.
--- NOTE | 2017-03-04 14:33 | NUR ---
ALLA MADE FOLLOW UP APPOITNMENTS WITH DR. TAYLOR Apr AT NOON, DID NOT WANT TO SEE HIM BEFORE THEM. ; [facility] 03/07 1PM AN D MED 03/25 AT 2PM.
--- NOTE | 2017-03-04 14:35 | NUR ---
ALLA SCHEDULED TRANSPORATION WITH [facility] - TRANSPORATION. BLESSED TRANSPORATIO WILL DOPE MIXER IN ABOUT 25 MINUTES.
--- NOTE | 2017-03-04 15:20 | NUR ---
Social PRICE Patient did attend group as well as participated. Patient maintained safe behaviors and voiced no suicial ideations during group
--- NOTE | 2017-03-04 15:34 | NUR ---
SW HAD PT SIGNED DISCHARGE FORMS. PT RECEIVED COPY OF FORMS. PT DISCHARGED HOME WITH FOLLOW UP WITH [facility] AND DR. TAYLOR. [facility]ERR[facility].
--- NOTE | 2017-03-05 16:20 | NUR ---
Outsole Cutter Machine note: faxed discharge information to Dr. Villa's office and to [facility]. Received confirmations from both.
--- NOTE | 2017-03-05 16:31 | NUR ---
Unit Corrdinator Note: Discharge information faxed to [facility]. Confirmation received.
== END 2017-03-04 15:02 | disposition home or self-care (01) | DRG 885 ==
LOC: ED 15:50 → 3N 19:38
PROVIDERS: Emergency Medicine; Psychiatry & Neurology Psychiatry; ADMIT Psychiatry & Neurology Psychiatry
DX: F33.2 Major depressive disorder, recurrent severe without psychotic features (principal); R65.10 Systemic inflammatory response syndrome (SIRS) of non-infectious origin without acute organ dysfunction; F11.23 Opioid dependence with withdrawal; F34.1 Dysthymic disorder; F41.9 Anxiety disorder, unspecified; G47.00 Insomnia, unspecified; G89.29 Other chronic pain; I25.10 Atherosclerotic heart disease of native coronary artery without angina pectoris; I10 Essential (primary) hypertension; I25.2 Old myocardial infarction; Z98.61 Coronary angioplasty status; Z79.899 Other long term (current) drug therapy; Z72.0 Tobacco use

== ENCOUNTER 2017-06-30 13:03 | Emergency (ER) | payer OTHER ==
[~2017-06-30] VITALS: Ht 172.7 cm; Wt 90.7 kg
[~2017-06-30 13:03] MED LIST changes: +DULOXETINE HCL60 MG PO; +HYDROXYZINE PAM25 M1 PO; +KLONOPIN0.5 MG PO; +TRAZADONE HYDR100 MG PO; +TRAZODONE50 MG PO
[2017-06-30] MEDS ORDERED: PREDNISONE10 MG PO (15:00)
== END 2017-06-30 15:09 | disposition home or self-care (01) ==
LOC: ED 13:03
DX: M48.061 Spinal stenosis, lumbar region without neurogenic claudication (principal); F17.200 Nicotine dependence, unspecified, uncomplicated; Z79.899 Other long term (current) drug therapy; Z79.82 Long term (current) use of aspirin; Z95.5 Presence of coronary angioplasty implant and graft

== ENCOUNTER 2017-08-16 11:06 | Emergency (ER) | payer OTHER ==
[~2017-08-16] VITALS: Ht 177.8 cm; Wt 83.9 kg
[~2017-08-16 11:06] MED LIST changes: +PREDNISONE10 MG PO
[2017-08-16] MEDS ORDERED: CHLORZOXAZONE500 M2 PO (11:10)
[2017-08-16] MEDS ORDERED: PREDNISONE10 MG PO (11:10)
== END 2017-08-16 11:16 | disposition home or self-care (01) ==
LOC: ED 11:06
DX: M54.42 Lumbago with sciatica, left side (principal); I25.10 Atherosclerotic heart disease of native coronary artery without angina pectoris; I10 Essential (primary) hypertension; F32.9 Major depressive disorder, single episode, unspecified; F17.200 Nicotine dependence, unspecified, uncomplicated; Z79.82 Long term (current) use of aspirin; Z79.899 Other long term (current) drug therapy

== ENCOUNTER 2017-11-16 16:33 | Emergency (ER) | payer OTHER ==
[~2017-11-16] VITALS: Ht 177.8 cm; Wt 81.6 kg
[~2017-11-16 16:33] MED LIST changes: +CHLORZOXAZONE500 M2 PO
[2017-11-16] MEDS ORDERED: ZESTORETIC 20-1 EACH PO (16:39)
[2017-11-16] MEDS ORDERED: CHLORZOXAZONE500 M2 PO (16:47)
[2017-11-16] MEDS ORDERED: PREDNISONE10 MG PO (16:47)
== END 2017-11-16 17:03 | disposition home or self-care (01) ==
LOC: ED 16:33
DX: R20.2 Paresthesia of skin (principal); G89.29 Other chronic pain; M54.2 Cervicalgia; F17.200 Nicotine dependence, unspecified, uncomplicated; I25.10 Atherosclerotic heart disease of native coronary artery without angina pectoris; I10 Essential (primary) hypertension; Z79.82 Long term (current) use of aspirin; Z79.899 Other long term (current) drug therapy

== ENCOUNTER 2019-02-23 13:41 | Inpatient (IN) | payer OTHER ==
[~2019-02-23] VITALS: Ht 177.8 cm; Wt 79.5 kg
[~2019-02-23 13:41] MED LIST changes: +ZESTORETIC 20-1 EACH PO
[2019-02-23 13:54] VITALS: BP 138/93
[2019-02-23 14:15] LABS: BASO # 0.1 10*3/uL (0.0-0.1); BASO % 0.5 % (0.0-1.0); EOS # 0.1 10*3/uL (0.0-0.4); EOS % 0.7 % (1.0-4.0); HEMATOCRIT 47.7 % (42.0-52.0); HEMOGLOBIN 15.9 g/dl (14.0-18.0); LYMPH # 2.6 10*3/uL (1.3-4.4); LYMPH % 23.2 % (27.0-41.0); MEAN CELL VOLUME 92.1 fl (80.0-94.0); MEAN CORPUSCULAR HGB 30.7 pg (27.0-31.0); MEAN CORPUSCULAR HGB CONC 33.3 g/dl (33.0-37.0); MEAN PLATELET VOLUME 9.4 fl (9.6-12.3); MONO # 0.8 10*3/uL (0.1-1.0); MONO % 7.2 % (3.0-9.0); NEUT # 7.6 10*3/uL (2.3-7.9); NEUT % 68.1 % (47.0-73.0); PLATELET COUNT AUTOMATED 271 10*3/uL (130-400); RED BLOOD COUNT 5.18 10*6/uL (4.50-5.90); RED CELL DISTRI WIDTH 13.7 % (0-14.5); WHITE BLOOD COUNT 11.2 10*3/uL (4.8-10.8)
[2019-02-23 14:31] LABS: ALKALINE PHOSPHATASE 93 U/L (45-117); BUN 12 mg/dl (7-24); CHLORIDE 103 mmol/L (98-107); CREATININE 0.94 mg/dL (0.70-1.30); SGOT/AST 13 IU/L (3-35); SGPT/ALT 23 U/L (12-78); SODIUM 135 mmol/L (136-145); TOTAL PROTEIN 7.9 gm/dL (6.4-8.2)
[2019-02-23 14:34] LABS: ACT PARTIAL THROMBO TIME 26.4 SECONDS (20.0-32.1); INTERNATIONAL NORM RATIO 0.9 (2.0-3.5)
[2019-02-23 14:38] LABS: TROPONIN I < 0.015 ng/ml (<0.045)
[2019-02-23 15:19] VITALS: BP 142/82
--- NOTE | 2019-02-23 15:54 | NUR ---
WARM BLANKET GIVEN PER PT REQUEST. NO VOICED COMPLAINTS AT THIS TIME.
[2019-02-23 16:35] VITALS: BP 120/76
[2019-02-23 17:43] VITALS: BP 130/83
[2019-02-23 17:59] VITALS: BP 106/78
--- NOTE | 2019-02-23 17:59 | NUR ---
A 63, admitted to , under the services of IVETTE Snyder DO with a diagnosis of COPD WITH EXACERBATION, SYNCOPE AND COLLAPSE. Chief complaint is SOB. Patient arrived via bed from ER. Monitor applied. Initial assessment completed. Vital signs taken and recorded. IVETTE SNYDER DO notified of admission to the unit. Orders received. See assessment for past medical history, medications and allergies. Patient and/or family oriented to unit. [facility] visitation policy reviewed. Clothing/patient valuable form completed. CASPER GARG
[2019-02-23] MEDS ORDERED: ZESTORETIC 10-1 EACH PO (18:25)
[2019-02-23] MEDS ORDERED: PROAIR HFA8.5 GM INH (18:25)
[2019-02-23] MEDS ORDERED: ZETIA10 MG PO (18:25)
[2019-02-23] MEDS ORDERED: PERCOCET 10-321 EACH PO (18:27)
--- NOTE | 2019-02-23 18:38 | NUR ---
ANSWERING SERVICE WAS NOTIFIED OF DR. SEARS CONSULT. RESPONSE OF NOTIFICATION WAS OK I WILL GET THIS OVER TO THE DOCTOR. SHADI BAILEY
--- NOTE | 2019-02-23 18:46 | NUR ---
PER DR SEARS NPO AFTER MIDNIGHT AND CALL WITH ANY QUESTIONS.
--- NOTE | 2019-02-23 19:05 | NUR ---
CALL PLACED TO DR ALAS REGARDING PT C/O DIZZINESS DURING ORTHOS DURING POSITION CHANGE FROM LYING TO SITTING ONLY. WILL AWAIT RETURN PHONECALL.
[2019-02-23 20:00] VITALS: BP 119/71
--- NOTE | 2019-02-23 20:03 | NUR ---
BOXED LUNCH AND SNACKS PROVIDED PER REQUEST.
--- NOTE | 2019-02-23 20:11 | NUR ---
NOTIFIED OF PATIENT'S HOME MED REC UP TO DATE & PT REQUESTING THEM THIS EVENING. WILL REVIEW & ORDER.
--- NOTE | 2019-02-23 21:48 | NUR ---
PT MEDICATED WITH PO PERCOCET PER PRN ORDER FOR C/O CHRONIC PAIN IN NECK RATED 10/10. WILL MONITOR EFFECTIVENESS. CALL LIGHT LEFT IN REACH.
[2019-02-24] VITALS: BP 105/61
--- NOTE | 2019-02-24 03:52 | NUR ---
PO PERCOCET ADMINISTERED PER PRN ORDER FOR C/O PAIN IN NECK RATED 6/10. WILL MONITOR.
[2019-02-24 06:35] LABS: BASO % 0.1 % (0.0-1.0); HEMOGLOBIN 14.3 g/dl (14.0-18.0); LYMPH # 1.2 10*3/uL (1.3-4.4); LYMPH % 8.7 % (27.0-41.0); MEAN CELL VOLUME 94.5 fl (80.0-94.0); MEAN CORPUSCULAR HGB 31.4 pg (27.0-31.0); MEAN CORPUSCULAR HGB CONC 33.3 g/dl (33.0-37.0); MEAN PLATELET VOLUME 9.7 fl (9.6-12.3); MONO # 0.2 10*3/uL (0.1-1.0); MONO % 1.6 % (3.0-9.0); NEUT # 12.6 10*3/uL (2.3-7.9); NEUT % 89.2 % (47.0-73.0); PLATELET COUNT AUTOMATED 267 10*3/uL (130-400); RED BLOOD COUNT 4.55 10*6/uL (4.50-5.90); WHITE BLOOD COUNT 14.1 10*3/uL (4.8-10.8)
[2019-02-24 06:47] LABS: ACT PARTIAL THROMBO TIME 26.1 SECONDS (20.0-32.1); INTERNATIONAL NORM RATIO 0.9 (2.0-3.5)
[2019-02-24 06:50] LABS: ALBUMIN 3.3 gm/dl (3.1-4.5); ALKALINE PHOSPHATASE 77 U/L (45-117); BUN 17 mg/dl (7-24); CHLORIDE 107 mmol/L (98-107); CHOLESTEROL 138 mg/dL (<200); HDL CHOLESTEROL 42 mg/dl (40-60); LDL CHOLESTEROL 82 mg/dL (9-159); PHOSPHOROUS 2.9 mg/dL (2.5-4.9); POTASSIUM 4.3 mmol/L (3.5-5.1); SGOT/AST 9 IU/L (3-35); SGPT/ALT 19 U/L (12-78); SODIUM 138 mmol/L (136-145); TOTAL PROTEIN 6.9 gm/dL (6.4-8.2); TRIGLYCERIDES 70 mg/dl (<150); VLDL CHOLESTEROL 14 mg/dL (6-40)
[2019-02-24 06:55] LABS: THYROID STIM HORMONE (HS) 0.298 uIU/ml (0.358-4.75)
[2019-02-24 07:36] LABS: VITAMIN D, 25-HYDROXY 22.2 ng/mL (30-100)
[2019-02-24 08:00] VITALS: BP 104/60
--- NOTE | 2019-02-24 09:00 | NUR ---
Director Operations Broadcast in to talk to patient. Patient states lives at home with family. There are few steps in the home. Physician: jerod Pharmacy: [facility] Home health services: none Patient's level of ADLs: INDEPENDENT Patient has working utilities: all working DME: none Follow-up physician's appointment after d/c: will be made by hospitalist nurse director upon discharge Does patient want to access PORTAL?: no Discharge plan discussed with patient, he lives at home, is independent in adls and ambulation, states he will return home when able and denies any home needs. WILMA BARRETT
--- NOTE | 2019-02-24 10:08 | NUR ---
MEDICATED WITH PRN PERCOCOET PER ORDER AND REQUEST FOR C/O NECK PAIN.
[2019-02-24 12:28] VITALS: BP 82/48
--- NOTE | 2019-02-24 12:44 | NUR ---
BP reported at 80/45 manual re-check at 82/48. Dr. Karimi was notified of hypotension following administration of antihypertensives. Pt. was cautioned to call for ambulation and to stand slowly. to remain in bed if dizziness ensues.
[2019-02-24 16:00] VITALS: BP 105/50
--- NOTE | 2019-02-24 16:12 | NUR ---
MEDICATED WITH PERCOCET PER ORDER AND REQUEST FOR C/O NECK PAIN.
--- NOTE | 2019-02-24 18:11 | NUR ---
PERCOCET EARLIER EFFECTIVE.
--- NOTE | 2019-02-24 19:44 | NUR ---
IV ABX INFUSION INITIATED PER ORDER. PT DENIES ANY NEEDS. WILL MONITOR.
[2019-02-24 20:00] VITALS: BP 101/56
[2019-02-25] VITALS: BP 96/59
[2019-02-25 03:10] VITALS: BP 118/64
--- NOTE | 2019-02-25 04:26 | NUR ---
PO PERCOCET ADMINISTERED PER PRN ORDER FOR C/O NECK PAIN RATED 8/10. WILL MONITOR EFFECTIVENESS. PT UP IN BATHROOM GETTING WASHED UP WITH AIDE.
[2019-02-25 06:25] LABS: BASO % 0.1 % (0.0-1.0); HEMATOCRIT 39.7 % (42.0-52.0); HEMOGLOBIN 13.1 g/dl (14.0-18.0); LYMPH # 1.4 10*3/uL (1.3-4.4); LYMPH % 6.7 % (27.0-41.0); MEAN CORPUSCULAR HGB 31.3 pg (27.0-31.0); MEAN PLATELET VOLUME 9.7 fl (9.6-12.3); MONO % 4.5 % (3.0-9.0); NEUT # 18.7 10*3/uL (2.3-7.9); PLATELET COUNT AUTOMATED 260 10*3/uL (130-400); RED BLOOD COUNT 4.18 10*6/uL (4.50-5.90); RED CELL DISTRI WIDTH 14.4 % (0-14.5); WHITE BLOOD COUNT 21.3 10*3/uL (4.8-10.8)
[2019-02-25 06:53] LABS: BUN 23 mg/dl (7-24); CHLORIDE 110 mmol/L (98-107); CREATININE 0.95 mg/dL (0.70-1.30); POTASSIUM 4.8 mmol/L (3.5-5.1); SODIUM 140 mmol/L (136-145)
[2019-02-25 08:00] VITALS: BP 118/62
--- NOTE | 2019-02-25 09:00 | NUR ---
case management visits with patient, he will return home when medically stable and denies any home needs
--- NOTE | 2019-02-25 09:00 | NUR ---
PATIENT HAVING STRESS TEST.
--- NOTE | 2019-02-25 10:00 | NUR ---
INFORMED SIGNED CONSENT OBTAINED FOR CGXT WITH DR PEÑALOZA. RESTING EKG NSR HR 70 BP 118/80 IN SUPINE POSITION, STANDING HR 73 BP 122/70. PT COMPLETED 5:00 OF A KLEBER PROTOCOL WITH STAGE II DECREASED TO 0 GRADE AND 1.7 MPH, TEST SWTICHED TO WALKING LEXISCAN FOR PTS FATIGUE AND SOB, PER DR PEÑALOZA. PT REACHED A PEAK HR OF 110 WHICH REPRESENTS 70% OF PREDICTED MAXIMUM AND A PEAK BP OF 130/78. LEXISCAN 0.4MG IV OVER 10 SECONDS GIVEN AT 1005. TEST TERMINATED DUE TO LEXISCAN PROTOCOL COMPLETED. LAST RECOVERY HR OF 87 BP 122/50. PT IN STABLE CONDITION, AWAITING NUCLEAR IMAGES.
--- NOTE | 2019-02-25 11:02 | NUR ---
PATIENT HAS RETURNED FROM STRESS TEST AND IS GARG STATING HE NEEDS PAIN MEDS.
--- NOTE | 2019-02-25 11:15 | NUR ---
MEDCIATED WITH PERCOCET PER ORDER AND REQUEST.
[2019-02-25 12:00] VITALS: BP 105/55
[2019-02-25] MEDS ORDERED: DOXYCYCLINE100 M3 PO (14:19)
[2019-02-25] MEDS ORDERED: VITAMIN D32000 UNI1 PO (14:19)
[2019-02-25] MEDS ORDERED: LOPRESSOR25 MG PO (14:19)
[2019-02-25] MEDS ORDERED: PREDNISONE10 MG PO (14:19)
--- NOTE | 2019-02-25 14:53 | NUR ---
PATIENT TO BE DISCHARGED TO HOME.
== END 2019-02-25 16:43 | disposition home or self-care (01) | DRG 204 ==
LOC: ED 13:41 → EDHOLD 16:27 → 5E 16:27
PROVIDERS: Emergency Medicine; Hospitalist; Internal Medicine; ADMIT Internal Medicine
PROC: 4A02XM4 Measurement of Cardiac Total Activity, External Approach (ICD-10-PCS; principal; 2019-02-25)
PROC: 3E073KZ Introduction of Other Diagnostic Substance into Coronary Artery, Percutaneous Approach (ICD-10-PCS; 2019-02-25)
DX: I95.1 Orthostatic hypotension (principal); E87.1 Hypo-osmolality and hyponatremia; J44.1 Chronic obstructive pulmonary disease with (acute) exacerbation; F32.9 Major depressive disorder, single episode, unspecified; I10 Essential (primary) hypertension; I25.10 Atherosclerotic heart disease of native coronary artery without angina pectoris; D72.829 Elevated white blood cell count, unspecified; F17.200 Nicotine dependence, unspecified, uncomplicated; E78.5 Hyperlipidemia, unspecified; F11.10 Opioid abuse, uncomplicated; R73.9 Hyperglycemia, unspecified; E55.9 Vitamin D deficiency, unspecified; I73.9 Peripheral vascular disease, unspecified; E66.3 Overweight; Z95.5 Presence of coronary angioplasty implant and graft; I25.2 Old myocardial infarction; Z79.899 Other long term (current) drug therapy; Z79.82 Long term (current) use of aspirin; Z71.6 Tobacco abuse counseling; Z68.25 Body mass index [BMI] 25.0-25.9, adult

== ENCOUNTER 2019-12-01 10:28 | Inpatient (IN) | payer MEDICARE, MEDICAID ==
[~2019-12-01] VITALS: Ht 177.8 cm; Wt 82.6 kg
[~2019-12-01 10:28] MED LIST changes: +DOXYCYCLINE100 M3 PO; +LOPRESSOR25 MG PO; +PERCOCET 10-321 EACH PO; +PROAIR HFA8.5 GM INH; +VITAMIN D32000 UNI1 PO; +ZESTORETIC 10-1 EACH PO; +ZETIA10 MG PO
[2019-12-01 10:33] VITALS: BP 164/86
[2019-12-01 10:54] LABS: BASO # 0.1 10*3/uL (0.0-0.1); BASO % 0.5 % (0.0-1.0); EOS # 0.1 10*3/uL (0.0-0.4); EOS % 0.6 % (1.0-4.0); HEMATOCRIT 47.8 % (42.0-52.0); LYMPH # 1.7 10*3/uL (1.3-4.4); LYMPH % 17.4 % (27.0-41.0); MEAN CELL VOLUME 91.6 fl (80.0-94.0); MEAN CORPUSCULAR HGB 30.1 pg (27.0-31.0); MEAN CORPUSCULAR HGB CONC 32.8 g/dl (33.0-37.0); MEAN PLATELET VOLUME 9.4 fl (9.6-12.3); MONO # 0.7 10*3/uL (0.1-1.0); MONO % 7.5 % (3.0-9.0); NEUT # 7.1 10*3/uL (2.3-7.9); NEUT % 73.6 % (47.0-73.0); PLATELET COUNT AUTOMATED 263 10*3/uL (130-400); RED BLOOD COUNT 5.22 10*6/uL (4.50-5.90); RED CELL DISTRI WIDTH 14.6 % (0-14.5); WHITE BLOOD COUNT 9.7 10*3/uL (4.8-10.8)
[2019-12-01 11:02] LABS: ACT PARTIAL THROMBO TIME 26.6 SECONDS (20.0-32.1); INTERNATIONAL NORM RATIO 0.9 (2.0-3.5)
[2019-12-01 11:08] LABS: ALBUMIN 3.7 gm/dl (3.1-4.5); ALKALINE PHOSPHATASE 80 U/L (45-117); BUN 12 mg/dl (7-24); CHLORIDE 107 mmol/L (98-107); CREATININE 0.86 mg/dL (0.70-1.30); SGOT/AST 14 IU/L (3-35); SGPT/ALT 30 U/L (12-78); SODIUM 137 mmol/L (136-145); TOTAL PROTEIN 7.3 gm/dL (6.4-8.2)
[2019-12-01 11:10] LABS: TROPONIN I < 0.015 ng/ml (<0.045)
[2019-12-01 12:51] VITALS: BP 123/80
[2019-12-01] MEDS ORDERED: ZESTORETIC 10-1 EACH PO (14:00)
[2019-12-01 14:07] VITALS: BP 133/83
[2019-12-01] MEDS ORDERED: METOPROLOL TART50 M1 PO (14:07)
[2019-12-01 14:30] VITALS: BP 121/80
[2019-12-01 20:00] VITALS: BP 138/80
[2019-12-02] VITALS: BP 134/88
[2019-12-02 07:35] LABS: HEMATOCRIT 43.1 % (42.0-52.0); MEAN CELL VOLUME 92.5 fl (80.0-94.0); MEAN CORPUSCULAR HGB 30.3 pg (27.0-31.0); MEAN CORPUSCULAR HGB CONC 32.7 g/dl (33.0-37.0); MEAN PLATELET VOLUME 9.6 fl (9.6-12.3); PLATELET COUNT AUTOMATED 247 10*3/uL (130-400); RED BLOOD COUNT 4.66 10*6/uL (4.50-5.90); RED CELL DISTRI WIDTH 14.6 % (0-14.5); WHITE BLOOD COUNT 16.8 10*3/uL (4.8-10.8)
[2019-12-02 08:11] LABS: BUN 8 mg/dl (7-24); CHLORIDE 112 mmol/L (98-107); POTASSIUM 4.1 mmol/L (3.5-5.1); SODIUM 141 mmol/L (136-145)
[2019-12-02 08:16] LABS: CHOLESTEROL 248 mg/dL (<200); CREATININE 0.89 mg/dL (0.70-1.30); HDL CHOLESTEROL 39 mg/dl (40-60); LDL CHOLESTEROL 187 mg/dL (9-159); TRIGLYCERIDES 112 mg/dl (<150); VLDL CHOLESTEROL 22 mg/dL (6-40)
[2019-12-02 08:19] LABS: BURR CELLS FEW; PLATELET SUFFICIENCY NORMAL (NORMAL); TOTAL CELLS COUNTED 100 #CELLS
[2019-12-02 08:47] LABS: VITAMIN D, 25-HYDROXY 34.7 ng/mL (30-100)
[2019-12-02 12:00] VITALS: BP 102/62
[2019-12-02 16:00] VITALS: BP 98/64
[2019-12-02 20:00] VITALS: BP 118/78
[2019-12-03] VITALS: BP 111/73
[2019-12-03 08:00] VITALS: BP 117/73
[2019-12-03 12:00] VITALS: BP 122/72
[2019-12-03 16:00] VITALS: BP 108/68
[2019-12-03 20:00] VITALS: BP 103/74
[2019-12-04] VITALS: BP 143/82
[2019-12-04 08:01] VITALS: BP 158/85
[2019-12-04 12:00] VITALS: BP 144/76
[2019-12-04] MEDS ORDERED: PREDNISONE10 MG PO (12:56)
[2019-12-04] MEDS ORDERED: DOXYCYCLINE100 M3 PO (12:56)
== END 2019-12-04 13:58 | disposition home or self-care (01) | DRG 871 ==
LOC: ED 10:28 → EDHOLD 13:34 → 4E 13:34
PROVIDERS: Emergency Medicine; Internal Medicine; ADMIT Internal Medicine
DX: A41.9 Sepsis, unspecified organism (principal); J18.9 Pneumonia, unspecified organism; J44.1 Chronic obstructive pulmonary disease with (acute) exacerbation; J44.0 Chronic obstructive pulmonary disease with (acute) lower respiratory infection; E87.2 Acidosis; I25.10 Atherosclerotic heart disease of native coronary artery without angina pectoris; R73.9 Hyperglycemia, unspecified; I10 Essential (primary) hypertension; F17.210 Nicotine dependence, cigarettes, uncomplicated; E55.9 Vitamin D deficiency, unspecified; M54.2 Cervicalgia; R65.20 Severe sepsis without septic shock; E78.5 Hyperlipidemia, unspecified; F32.9 Major depressive disorder, single episode, unspecified; R73.03 Prediabetes; S80.212A Abrasion, left knee, initial encounter; X58.XXXA Exposure to other specified factors, initial encounter; Y93.89 Activity, other specified; Y92.89 Other specified places as the place of occurrence of the external cause; Y99.8 Other external cause status; I25.2 Old myocardial infarction; Z71.6 Tobacco abuse counseling; Z95.5 Presence of coronary angioplasty implant and graft; Z79.82 Long term (current) use of aspirin; Z79.899 Other long term (current) drug therapy; G90.8 Other disorders of autonomic nervous system

== ENCOUNTER → 2020-08-24 | Outpatient (CLI) | payer MEDICARE ==
[2020-08-24 11:18] LABS: BUN 26 mg/dl (7-24); CHLORIDE 104 mmol/L (98-107); CHOLESTEROL 126 mg/dL (<200); HDL CHOLESTEROL 36 mg/dl (40-60); LDL CHOLESTEROL 45 mg/dL (9-159); POTASSIUM 4.2 mmol/L (3.5-5.1); SODIUM 137 mmol/L (136-145); TRIGLYCERIDES 223 mg/dl (<150); VLDL CHOLESTEROL 45 mg/dL (6-40)
== END | disposition home or self-care (01) ==
LOC: LAB 10:28
PROVIDERS: ATTEND Family Medicine
DX: E78.2 Mixed hyperlipidemia (principal); I10 Essential (primary) hypertension; I25.9 Chronic ischemic heart disease, unspecified

== ENCOUNTER 2020-09-26 11:38 | Emergency (ER) | payer MEDICARE ==
[~2020-09-26] VITALS: Ht 177.8 cm; Wt 83.0 kg
[2020-09-26 13:57] LABS: BASO # 0.1 10*3/uL (0.0-0.1); BASO % 0.6 % (0.0-1.0); EOS # 0.2 10*3/uL (0.0-0.4); HEMATOCRIT 37.4 % (42.0-52.0); LYMPH # 1.9 10*3/uL (1.3-4.4); LYMPH % 15.4 % (27.0-41.0); MEAN CELL VOLUME 90.8 fl (80.0-94.0); MEAN CORPUSCULAR HGB 29.9 pg (27.0-31.0); MEAN CORPUSCULAR HGB CONC 32.9 g/dl (33.0-37.0); MEAN PLATELET VOLUME 8.9 fl (9.6-12.3); MONO # 1.2 10*3/uL (0.1-1.0); MONO % 9.9 % (3.0-9.0); NEUT # 8.7 10*3/uL (2.3-7.9); NEUT % 71.8 % (47.0-73.0); PLATELET COUNT AUTOMATED 381 10*3/uL (130-400); RED BLOOD COUNT 4.12 10*6/uL (4.50-5.90); RED CELL DISTRI WIDTH 13.6 % (0-14.5); WHITE BLOOD COUNT 12.1 10*3/uL (4.8-10.8)
[2020-09-26 14:13] LABS: ALBUMIN 3.4 gm/dl (3.1-4.5); CREATININE 2.82 mg/dL (0.70-1.30); POTASSIUM 4.6 mmol/L (3.5-5.1); TOTAL PROTEIN 7.8 gm/dL (6.4-8.2)
== END 2020-09-26 15:05 | disposition short-term general hospital (02) ==
LOC: ED 11:38
PROVIDERS: Internal Medicine
DX: I63.9 Cerebral infarction, unspecified (principal); H54.7 Unspecified visual loss; Z79.899 Other long term (current) drug therapy; Z79.82 Long term (current) use of aspirin; Z95.818 Presence of other cardiac implants and grafts

== ENCOUNTER → 2020-12-12 | Outpatient (CLI) | payer MEDICARE | END | disposition home or self-care (01) | LOC: RAD 12:24 | PROVIDERS: ATTEND Family Medicine | DX: M25.552 Pain in left hip (principal) ==

== ENCOUNTER 2020-12-15 13:31 | Emergency (ER) | payer MEDICARE ==
[~2020-12-15] VITALS: Ht 177.8 cm; Wt 68.5 kg
[2020-12-15 14:29] LABS: BASO # 0.1 10*3/uL (0.0-0.1); BASO % 0.5 % (0.0-1.0); EOS # 0.1 10*3/uL (0.0-0.4); EOS % 0.9 % (1.0-4.0); HEMATOCRIT 36.4 % (42.0-52.0); LYMPH # 1.9 10*3/uL (1.3-4.4); LYMPH % 19.4 % (27.0-41.0); MEAN CORPUSCULAR HGB 29.5 pg (27.0-31.0); MEAN CORPUSCULAR HGB CONC 32.4 g/dl (33.0-37.0); MEAN PLATELET VOLUME 9.1 fl (9.6-12.3); MONO # 0.6 10*3/uL (0.1-1.0); MONO % 6.3 % (3.0-9.0); NEUT # 7.1 10*3/uL (2.3-7.9); NEUT % 72.5 % (47.0-73.0); PLATELET COUNT AUTOMATED 480 10*3/uL (130-400); RED CELL DISTRI WIDTH 15.5 % (0-14.5); WHITE BLOOD COUNT 9.8 10*3/uL (4.8-10.8)
[2020-12-15 14:46] LABS: ALBUMIN 3.1 gm/dl (3.1-4.5); ALKALINE PHOSPHATASE 105 U/L (45-117); BUN 23 mg/dl (7-24); CHLORIDE 107 mmol/L (98-107); CREATININE 0.93 mg/dL (0.70-1.30); POTASSIUM 4.4 mmol/L (3.5-5.1); SGOT/AST 14 IU/L (3-35); SGPT/ALT 19 U/L (12-78); SODIUM 140 mmol/L (136-145); TOTAL PROTEIN 7.4 gm/dL (6.4-8.2)
[2020-12-15] MEDS ORDERED: ZOFRAN4 MG PO (17:39)
== END 2020-12-15 18:14 | disposition home or self-care (01) ==
LOC: ED 13:31
PROVIDERS: Internal Medicine
DX: E86.0 Dehydration (principal); R11.2 Nausea with vomiting, unspecified; R63.4 Abnormal weight loss; F17.200 Nicotine dependence, unspecified, uncomplicated; Z79.899 Other long term (current) drug therapy; Z79.2 Long term (current) use of antibiotics; Z79.82 Long term (current) use of aspirin; Z95.5 Presence of coronary angioplasty implant and graft

== ENCOUNTER → 2021-02-15 | Outpatient (CLI) | payer MEDICARE | LOC: US 07:30 | PROVIDERS: ATTEND Family Medicine | DX: R01.0 Benign and innocent cardiac murmurs (principal) ==

== ENCOUNTER 2022-03-18 14:06 | Emergency (ER) | payer MEDICARE ==
[~2022-03-18] VITALS: Wt 61.2 kg
[~2022-03-18 14:06] MED LIST changes: +BRILINTA90 M1 PO
[2022-03-18 14:39] LABS: BASO # 0.1 10*3/uL (0.0-0.1); BASO % 0.6 % (0.0-1.0); EOS # 0.1 10*3/uL (0.0-0.4); EOS % 0.5 % (1.0-4.0); HEMATOCRIT 42.9 % (42.0-52.0); LYMPH # 1.9 10*3/uL (1.3-4.4); LYMPH % 17.4 % (27.0-41.0); MEAN CELL VOLUME 94.9 fl (80.0-94.0); MEAN CORPUSCULAR HGB 31.4 pg (27.0-31.0); MEAN CORPUSCULAR HGB CONC 33.1 g/dl (33.0-37.0); MEAN PLATELET VOLUME 8.7 fl (9.6-12.3); MONO # 0.7 10*3/uL (0.1-1.0); MONO % 6.8 % (3.0-9.0); NEUT # 8.1 10*3/uL (2.3-7.9); NEUT % 74.3 % (47.0-73.0); PLATELET COUNT AUTOMATED 378 10*3/uL (130-400); RED BLOOD COUNT 4.52 10*6/uL (4.50-5.90); RED CELL DISTRI WIDTH 13.9 % (0-14.5); WHITE BLOOD COUNT 10.9 10*3/uL (4.8-10.8)
[2022-03-18 14:55] LABS: ALKALINE PHOSPHATASE 75 U/L (45-117); BUN 16 mg/dl (7-24); CHLORIDE 107 mmol/L (98-107); CREATININE 0.87 mg/dL (0.70-1.30); SGOT/AST 13 IU/L (3-35); SGPT/ALT 17 U/L (12-78); SODIUM 140 mmol/L (136-145); TOTAL PROTEIN 7.9 gm/dL (6.4-8.2)
== END 2022-03-18 16:00 | disposition home or self-care (01) ==
LOC: ED 14:06
PROVIDERS: Student in an Organized Health Care Education/Training Program
DX: G89.29 Other chronic pain (principal); M54.2 Cervicalgia; M54.9 Dorsalgia, unspecified; F17.200 Nicotine dependence, unspecified, uncomplicated; Z79.899 Other long term (current) drug therapy; Z79.82 Long term (current) use of aspirin

== ENCOUNTER → 2022-10-02 | Outpatient (CLI) | payer MEDICARE ==
[2022-10-02 11:08] LABS: BASO % 0.1 % (0.0-1.0); HEMATOCRIT 35.1 % (42.0-52.0); LYMPH # 1.1 10*3/uL (1.3-4.4); LYMPH % 5.3 % (27.0-41.0); MEAN CELL VOLUME 90.9 fl (80.0-94.0); MEAN CORPUSCULAR HGB 29.3 pg (27.0-31.0); MEAN CORPUSCULAR HGB CONC 32.2 g/dl (33.0-37.0); MEAN PLATELET VOLUME 9.2 fl (9.6-12.3); MONO # 0.8 10*3/uL (0.1-1.0); MONO % 3.7 % (3.0-9.0); NEUT # 18.5 10*3/uL (2.3-7.9); NEUT % 89.9 % (47.0-73.0); PLATELET COUNT AUTOMATED 547 10*3/uL (130-400); RED BLOOD COUNT 3.86 10*6/uL (4.50-5.90); WHITE BLOOD COUNT 20.5 10*3/uL (4.8-10.8)
[2022-10-02 11:42] LABS: ALKALINE PHOSPHATASE 98 U/L (46-116); BUN 35 mg/dl (9-23); CHLORIDE 100 mmol/L (98-107); CHOLESTEROL 87 mg/dL (<200); POTASSIUM 4.3 mmol/L (3.4-5.1); SGPT/ALT 13 U/L (10-49); THYROID STIM HORMONE (HS) 0.705 uIU/ml (0.550-4.780); TOTAL PROTEIN 7.4 gm/dL (6.0-8.0); TRIGLYCERIDES 124 mg/dl (<150)
[2022-10-02 11:44] LABS: LDL CHOLESTEROL 47 mg/dL (9-159)
== END | disposition home or self-care (01) ==
LOC: LAB 10:23
PROVIDERS: ATTEND Family Medicine
DX: J44.9 Chronic obstructive pulmonary disease, unspecified (principal); I25.10 Atherosclerotic heart disease of native coronary artery without angina pectoris; R91.1 Solitary pulmonary nodule; E78.2 Mixed hyperlipidemia; R63.4 Abnormal weight loss

== ENCOUNTER → 2022-10-03 | Outpatient (CLI) | payer MEDICARE ==
[2022-10-03 16:24] LABS: BILIRUBIN Negative (Negative); BLOOD Negative (Negative); CLARITY Turbid (Clear); COLOR Dark Yellow (Yellow); GLUCOSE Negative (Negative); KETONE Trace (Negative); LEUKO ESTERASE Trace (Negative); NITRITE Negative (Negative); SPECIFIC GRAVITY >= 1.030 (1.001-1.030)
[2022-10-03 16:42] LABS: BACTERIA 1+; MUCOUS 1+; RBC 0-2 rbc/hpf (0-2)
[2022-10-04 06:08] LABS: TOTAL PROTEIN, SERUM 6.3 g/dL (6.0-8.5)
[2022-10-04 14:08] LABS: A/G RATIO 0.6 (0.7-1.7); ALBUMIN 2.4 g/dL (2.9-4.4); ALPHA-1-GLOBULIN 0.6 g/dL (0.0-0.4); ALPHA-2-GLOBULIN 1.1 g/dL (0.4-1.0); BETA GLOBULIN 1.1 g/dL (0.7-1.3); GAMMA GLOBULIN 1.2 g/dL (0.4-1.8); GLOBULIN, TOTAL 3.9 g/dL (2.2-3.9); M-SPIKE Comment: g/dL (Not Observed)
[2022-10-05 14:08] LABS: ALBUMIN, URINE 16.4 % (.); ALPHA-1-GLOBULIN, URINE 2.5 % (.); ALPHA-2-GLOBULIN, URINE 19.4 % (.); BETA GLOBULIN, URINE 34.7 % (.); M-SPIKE, % Not Observed % (Not Observed); PROTEIN,TOTAL - URINE RANDOM 44.2 mg/dL (Not Estab.)
== END | disposition home or self-care (01) ==
LOC: LAB 15:47
PROVIDERS: ATTEND Family Medicine
DX: M06.4 Inflammatory polyarthropathy (principal); R70.0 Elevated erythrocyte sedimentation rate; R53.83 Other fatigue

== ENCOUNTER → 2022-10-10 | Outpatient (CLI) | payer MEDICARE | END | disposition home or self-care (01) | LOC: CT 09:00 | PROVIDERS: ATTEND Family Medicine | DX: J43.9 Emphysema, unspecified (principal); R91.8 Other nonspecific abnormal finding of lung field; J90 Pleural effusion, not elsewhere classified; R59.0 Localized enlarged lymph nodes; Q25.46 Tortuous aortic arch; M47.814 Spondylosis without myelopathy or radiculopathy, thoracic region; C34.92 Malignant neoplasm of unspecified part of left bronchus or lung ==

== ENCOUNTER → 2022-10-20 | Emergency (ER) | payer MEDICARE ==
[~2022-10-20] VITALS: Ht 177.8 cm; Wt 54.6 kg
[~2022-10-20] MED LIST changes: +LOPRESSOR50 M1 PO
[2022-10-20 11:11] LABS: BASO % 0.1 % (0.0-1.0); HEMATOCRIT 28.9 % (42.0-52.0); LYMPH # 1.2 10*3/uL (1.3-4.4); LYMPH % 5.7 % (27.0-41.0); MEAN CELL VOLUME 86.8 fl (80.0-94.0); MEAN CORPUSCULAR HGB 29.1 pg (27.0-31.0); MEAN CORPUSCULAR HGB CONC 33.6 g/dl (33.0-37.0); MONO % 4.9 % (3.0-9.0); NEUT # 18.1 10*3/uL (2.3-7.9); NEUT % 88.5 % (47.0-73.0); PLATELET COUNT AUTOMATED 512 10*3/uL (130-400); RED BLOOD COUNT 3.33 10*6/uL (4.50-5.90); RED CELL DISTRI WIDTH 14.4 % (0-14.5); WHITE BLOOD COUNT 20.4 10*3/uL (4.8-10.8)
[2022-10-20 11:36] LABS: ALKALINE PHOSPHATASE 122 U/L (46-116); BUN 14 mg/dl (9-23); CHLORIDE 101 mmol/L (98-107); LIPASE 23 U/L (12-53); POTASSIUM 3.8 mmol/L (3.4-5.1); SGPT/ALT 51 U/L (10-49); TOTAL PROTEIN 6.9 gm/dL (6.0-8.0)
[2022-10-20 13:57] LABS: BILIRUBIN Negative (Negative); BLOOD Negative (Negative); CLARITY Clear (Clear); COLOR Yellow (Yellow); GLUCOSE Negative (Negative); KETONE 1+ (Negative); LEUKO ESTERASE Negative (Negative); NITRITE Negative (Negative); PH 6.5 (4.5-8.0); SPECIFIC GRAVITY >= 1.030 (1.001-1.030)
[2022-10-20 14:18] LABS: BACTERIA TRACE; MUCOUS TRACE
== END ==
LOC: ED 09:55
PROVIDERS: Internal Medicine; Student in an Organized Health Care Education/Training Program
DX: J85.0 Gangrene and necrosis of lung (principal); I71.40 Abdominal aortic aneurysm, without rupture, unspecified; R11.2 Nausea with vomiting, unspecified; F17.200 Nicotine dependence, unspecified, uncomplicated; Z79.899 Other long term (current) drug therapy; Z79.82 Long term (current) use of aspirin; Z95.5 Presence of coronary angioplasty implant and graft

== ENCOUNTER → 2022-12-20 | Outpatient (CLI) | payer MEDICARE | END | disposition home or self-care (01) | LOC: RAD 11:30 | PROVIDERS: ATTEND Family Medicine | DX: J18.8 Other pneumonia, unspecified organism (principal) ==